=== PATIENT | male | born 2000 | race Caucasian/White ===

== ENCOUNTER 2020-02-21 16:13 | Observation (INO) | payer BC ==
[~2020-02-21] VITALS: Ht 177.8 cm; Wt 87.1 kg
[2020-02-21 16:53] LABS: HEMATOCRIT 44.1 % (36.0-47.0); HEMOGLOBIN 14.9 g/dl (12.5-16.1); MEAN CELL VOLUME 85 fl (80.0-95.0); MEAN CORPUSCULAR HEMOGLOBIN 29 pg (26.0-32.0); MEAN CORPUSCULAR HGB CONC 34 g/dl (33.0-37.0); MEAN PLATELET VOLUME 8.6 fl (7.4-10.4); PLATELET COUNT 216 K/mm3 (130-400); REDCELL DISTRIBUTION WIDTH-CV 12.4 % (11.5-14.5)
[2020-02-21 17:04] LABS: ALBUMIN 4.5 gm/dL (3.5-5.0); BILIRUBIN,TOTAL 0.6 mg/dL (0.0-1.0); CALCIUM 9.5 mg/dL (8.4-10.2); CREATININE, serum 0.86 (0.66-1.25); POTASSIUM 4.3 mmol/L (3.4-5.0); TOTAL PROTEIN 8.2 gm/dL (6.4-8.2)
[2020-02-21 17:40] LABS: BAND 2 % (0-10); LYMPHOCYTE 61 % (20.0-51.0); NEUTROPHILS 29 % (42.0-75.2)
[2020-02-21 17:43] LABS: PLATELET ESTIMATE NORMAL (NORMAL)
[2020-02-21] MEDS ORDERED: AMOXICILLIN 8751 TAB PO (18:08)
--- NOTE | 2020-02-21 18:20 | NUR ---
Patient alert and oriented, answers questions appropriately. See assessment. Abdomen soft, non tender, non distended. Bowel sounds hyperactive x4 quads. Tenderness with palpation noted to LLQ/LUQ. No other c/o at this time.
[2020-02-21 18:34] VITALS: BP 125/72; PULSE 77; TEMP 98.7
[2020-02-21 20:00] VITALS: BP 120/71; PULSE 80; TEMP 98.5
--- NOTE | 2020-02-21 22:00 | NUR ---
PT IN BED, IS ALERT AND ORIENTED X4. REPORTS LLQ PAIN WITH PALPATION TO ABD, DENIES NEED FOR PAIN MED AT THIS TIME. IVF INFUSING TO RIGHT FOREARM, NO REDNESS OR SWELLING NOTED. UP INDEPENDENTLY IN ROOM. PROVIDED JELLO FOR SNACK, DR RICHARD KELLER HOME MED AUGMENTIN, DOSE GIVEN. REMAINS ON CLEAR LIQUIDS FOR TONIGHT.
[2020-02-21 22:04] LABS: HEMATOCRIT 39.6 % (36.0-47.0); HEMOGLOBIN 13.6 g/dl (12.5-16.1)
[2020-02-21 23:40] VITALS: BP 129/78; PULSE 84; TEMP 98.5
--- NOTE | 2020-02-22 00:01 | NUR ---
PT COMPLAINS OF PERSISTENT LLQ PAIN, MORPHINE 2MG IVP GIVEN AT 2359.
[2020-02-22 04:00] VITALS: BP 118/75; PULSE 84; TEMP 98.5
--- NOTE | 2020-02-22 06:00 | NUR ---
PT DENIES NEED FOR PAIN MEDS, RESTED WELL THIS SHIFT.
--- NOTE | 2020-02-22 07:13 | NUR ---
Dr Stallworth here to see patient.
--- NOTE | 2020-02-22 08:15 | NUR ---
Patient alert and oriented, answers questions appropriately. See assessment. Abdomen soft, non tender, non distended. Bowel sounds hyperactive x4 quads. +Flatus. No eccymosis noted to abdomen. No pain to abdomen with palpation. No c/o at this time.
[2020-02-22 08:16] LABS: HEMATOCRIT 39.9 % (36.0-47.0); HEMOGLOBIN 13.7 g/dl (12.5-16.1)
[2020-02-22 08:37] VITALS: BP 122/71; PULSE 80; TEMP 98.2
--- NOTE | 2020-02-22 09:43 | NUR ---
Discharge instructions reveiwed with patient, verbalized understanding. Discharged ambulatory to auto/home with family at 0940.
== END 2020-02-22 09:40 | disposition home or self-care (01) ==
LOC: COL.ER 16:13 → SURG 17:34
PROVIDERS: Family Medicine; ADMIT Surgery
DX: R10.9 Unspecified abdominal pain (principal); V29.9XXA Motorcycle rider (driver) (passenger) injured in unspecified traffic accident, initial encounter
CPT/HCPCS: G0378; J2270; J7120; Q9967